=== PATIENT | male | born 1990 | race Caucasian/White ===

== ENCOUNTER → 2025-04-16 14:28 | Outpatient (REF) | payer OTHER, SELFPAY | LOC: MRI 3T 14:28 | PROVIDERS: ATTENDING PHYSICIAN Student in an Organized Health Care Education/Training Program | DX: S83.419A Sprain of medial collateral ligament of unspecified knee, initial encounter (principal); S89.90XA Unspecified injury of unspecified lower leg, initial encounter | CPT/HCPCS: 73721 ==

== ENCOUNTER → 2025-04-16 15:24 | Outpatient (REF) | payer OTHER, SELFPAY | LOC: RAD 15:24 | PROVIDERS: ATTENDING PHYSICIAN Student in an Organized Health Care Education/Training Program | DX: S83.419A Sprain of medial collateral ligament of unspecified knee, initial encounter (principal); S89.90XA Unspecified injury of unspecified lower leg, initial encounter | CPT/HCPCS: 72040; 72072; 72100 ==

== ENCOUNTER 2025-07-09 06:32 | Day surgery (SDC) | payer OTHER, SELFPAY ==
[2025-07-09] VITALS (8 sets, daily range): BP systolic 96–119; BP diastolic 60–79; BMI 33.6
[2025-07-09] MEDS: TYLENOL 1000 MG PO (13:13)
[2025-07-09] MEDS: NORMOSOL-R/PLASMALYTE-A 1000 IV (13:24)
--- NOTE | 2025-07-09 18:14 | W.IMMPOSTOP ---
Surgical Immed Post Op Note
-
Primary Surgeon: Tolu Diez MD
Assisting Surgeon:
Pre-op Diagnosis: left knee medial parameniscal cyst
Post-op Diagnosis: left knee medial parameniscal cyst
Procedure Performed: arthroscopic left knee debridement of cyst
Anesthesia Type: general
Specimen / Cultures: none
Estimated Blood Loss: 1mL
Complications: none apparent
Tourniquet time: 23 minutes at 250mm Hg
Operative Findings: Intact menisci, cartilage, ACL; irregularity of medial horn fat pad, concerning for underlying cyst
Operative dictation#: [id number]
[2025-07-09] MEDS: DILAUDID 0.5 MG IV (18:41)
[2025-07-09] MEDS: ROXICODONE 5 MG PO (19:42)
== END 2025-07-09 19:49 | disposition home or self-care (01) ==
LOC: SDS 06:32
PROVIDERS: ATTENDING PHYSICIAN Student in an Organized Health Care Education/Training Program
DX: M23.012 Cystic meniscus, anterior horn of medial meniscus, left knee (principal)
CPT/HCPCS: 29875